=== PATIENT | female | born 1995 ===

== ENCOUNTER → 2022-06-04 09:41 | Outpatient (CLI) | payer OTHER, SELFPAY ==
--- NOTE | ~2022-06-04 | MR_ITS ---
MRI of the brain and pituitary gland Clinical History: Abnormal endocrine function studies Technique: Axial and sagittal T1-weighted images were acquired. These were followed by axial T2-weigh christal, diffusion weighted, gradient, and FLAIR images. Sagittal and coronal thin cut T1-weighted images were performed through the sella turcica. Following intravenous administration of 10 cc MultiHance g adolinium, T1-weighted fat-sat imaging was performed through the brain in the axial and coronal plane s. Dynamic coronal postcontrast imaging and sagittal postcontrast imaging was performed through the s sara turcica. Findings: No abnormal signal seen in the brain parenchyma. No acute infarct, intracranial hemorrhage, or mass lesion. Ventricles and subarachnoid spaces are unremarkable. Orbits are unremarkable. Paranasal sinuses and m astoid air cells are clear. Major intracranial flow voids are intact. Sagittal midline structures are intact. No abnormal pituitary mass or sellar/suprasellar mass identif ied. No abnormal postcontrast enhancement identified. IMPRESSION: Unremarkable exam Reviewed, dictated and finalized at location M. IMPRESSION: Unremarkable exam
== END ==
PROVIDERS: PCP Family Medicine; Visit Provider Internal Medicine Endocrinology, Diabetes & Metabolism
DX: R94.7 Abnormal results of other endocrine function studies (principal)
CPT/HCPCS: 70553; A9577